=== PATIENT | female | born 1960 | race Caucasian/White ===

== ENCOUNTER 2016-10-04 17:03 | Emergency (ER) | payer OTHER ==
[2016-10-04 17:14] VITALS: BP 161/97; PULSE 98; TEMP 98.1; BMI 27.4
--- NOTE | 2016-10-04 19:14 | PDOC ---
History of Present Illness - General Chief Complaint: Injury Stated Complaint: FALL/INJURY Time Seen by Provider: 10/04/16 19:13 History Source: Patient Exam Limitations: Language Barrier (Her daughter provided turkmen translation) - History of Present Illness Initial Comments: CHIEF COMPLAINT: 56 y/o afebrile female with no significant PMH here for evaluation after slip and fall at 11am this morning. HISTORY OF PRESENT ILLNESS: The patient states she slipped on water in her house this morning and fell, with the right side of her head and her right shoulder hitting the corner of the wall. She states her right shoulder and the right side of her head are sore. She denies LOC, dizziness, neck pain, changes in vision/hearing, n/v/d, CP, SOB, abd pain, back pain, numbness/tingling in extremities, decreased ROM of right arm/shoulder. The patient's daughter states she is acting normally without slurred speech or seizures. She did not take anything for her pain. Vital signs on arrival are within normal limits. REVIEW OF SYSTEMS: GENERAL/CONSTITUTIONAL: No fever/chills. No weakness. No weight change. HEAD, EYES, EARS, NOSE AND THROAT: No change in vision. No ear pain or discharge. No sore throat. CARDIOVASCULAR: No chest pain or shortness of breath. RESPIRATORY: No cough, wheezing, or hemoptysis. GASTROINTESTINAL: No abd pain, nausea, vomiting, diarrhea. GENITOURINARY: No dysuria, frequency, or change in urination. MUSCULOSKELETAL: No joint or muscle swelling or pain. No neck or back pain. SKIN: No rash or easy bruising. NEUROLOGIC: No headache, vertigo, loss of consciousness, or loss of sensation. PHYSICAL EXAM: GENERAL: The patient is awake, alert, and fully oriented, in no acute distress. She is very well appearing, ambulatory, in NAD or obvious discomfort. HEAD: 0.5cm, minimally raised hematoma of right parietal region that is TTP. No battles signs. ENT: Pupils equal, round and reactive to light, extraocular movements intact, sclera anicteric, conjunctiva clear. No pain with EOMs. No raccoon eyes. Neck supple. No midline cervical spine TTP or step offs. No hemotympanum b/l. LUNGS: Clear to auscultation bilaterally. Normal excursion. No respiratory distress or use of accessory muscles. CV: RRR, S1/S2, no MRG. Cap refill < 2 sec. ABDOMEN: Soft, non-distended, non-tender even to deep palpation, no hepatomegaly or splenomegaly, no masses. EXTREMITIES: Normal range of motion, no edema. Full flexion, extension, abduction, adduction of right shoulder without pain. Minimal pain when she puts her right hand over her shoulder. Minimal pain elicited with palpation of right anterior AC joint. NEUROLOGICAL: Normal speech, normal gait. CN II-XII grossly intact. PSYCH: Normal mood, normal affect. SKIN: Warm, dry, normal turgor, no rashes or lesions noted. Past History - Past Medical History Allergies/Adverse Reactions: Allergies Allergy/AdvReac Type Severity Reaction Status Date / Time No Known Drug Allergies Allergy Verified 10/04/16 17:14 Home Medications: Ambulatory Orders Garlic 1 each PO DAILY 09/22/13 Multivitamin [Multivitamins] 1 tab PO DAILY 09/22/13 Anemia: No Asthma: No Cancer: No Cardiac Disorders: No CVA: No COPD: No CHF: No Dementia: No Diabetes: No GI Disorders: No Disorders: No HTN: Yes (NO MEDS) Hypercholesterolemia: Yes (NO MEDS) Liver Disease: No Suicide Attempt (Hx): No Seizures: No Thyroid Disease: No - Immunization History Td Vaccination: No Immunization Up to Date: No - Psycho/Social/Smoking Cessation Hx Anxiety: No Suicidal Ideation: No Smoking Status: No Smoking History: Never smoked Number of Cigarettes Smoked Daily: 0 Hx Alcohol Use: No Drug/Substance Use Hx: No Substance Use Type: None Hx Substance Use Treatment: No *Physical Exam - Vital Signs Last Vital Signs Temp Pulse Resp BP Pulse Ox 98.1 F 98 H 20 161/97 100 10/04/16 17:11 10/04/16 17:11 10/04/16 17:11 10/04/16 17:11 10/04/16 17:11 Medical Decision Making - Medical Decision Making A/P: 56 y/o female with slip and fall today with small hematoma to head and right shoulder strain. Offered Motrin for pain and she agrees. Suggested she take Motrin for pain every 6 hours at home for pain, apply ice to affected areas and continue to move her right arm. Suggested she f/u with her doctor if no improvement in symptoms within 1 week and return to the ER with any worsening or concerning symptoms. The patient verbalizes understanding of all instructions, has no further questions and is awaiting discharge. *DC/Admit/Observation/Transfer Diagnosis at time of Disposition: Hematoma Injury of head Qualifiers: Encounter type: initial encounter Qualified Code(s): S09.90XA - Unspecified injury of head, initial encounter Sprain of shoulder Qualifiers: Encounter type: initial encounter Shoulder sprain type: unspecified sprain Laterality: right Qualified Code(s): S43.401A - Unspecified sprain of right shoulder joint, initial encounter - Discharge Dispostion Disposition: HOME Condition at time of disposition: Good - Patient Instructions Printed Discharge Instructions: DI for Closed Head Injury, DI for Shoulder Sprain, How To Perform RICE (Rest, Ice, Compress, Elevate) Additional Instructions: Discharge Instructions: -Take Motrin every 6 hours with food for pain -Apply ice to the affected area on your head and your shoulder -Continue to move your shoulder -Follow up with your doctor in 1 week if no improvement in symptoms -Return to the ER with any worsening or concerning symptoms Print Language: GERMAN
[2016-10-04] MEDS ORDERED: IBUPROFEN 600 MG TABLET (FP) PO ONE ×2 (19:49→19:50)
== END 2016-10-04 20:03 | disposition home or self-care (01) ==
LOC: JERFT 17:03
DX: S00.03XA Contusion of scalp, initial encounter (principal); S43.401A Unspecified sprain of right shoulder joint, initial encounter; W01.0XXA Fall on same level from slipping, tripping and stumbling without subsequent striking against object, initial encounter; Y93.89 Activity, other specified; Y92.031 Bathroom in apartment as the place of occurrence of the external cause
CPT/HCPCS: 99281-25